=== PATIENT | female | born 1970 | race Caucasian/White ===

== ENCOUNTER → 2016-09-02 | Outpatient (CLI) | payer MEDICARE, MEDICAID ==
[~2016-09-02] MED LIST: BUPR300T28 PO; CLON1TAB4 PO; CYCL5TAB PO; DEXL60CA3 PO; DICY10CA88 PO; FERR-63 PO; GEMF600T3 PO; HYDR25TA PO; LISI40TA4 PO; MELO-58 PO; RANI150T7 PO; VITAMIN B COMPLEX PO; [UNRECOGNIZED DRUG - CODE] PO
[2016-09-02 12:17] LABS: BASOPHILS % 0.7 % (0.0-2.0); EOSINOPHILS % 1.8 % (0.0-5.0); HEMATOCRIT. 36.7 % (36.0-48.0); HEMOGLOBIN. 12.3 g/dL (12.0-16.0); LYMPHOCYTES % 44.2 % (20.0-50.0); MEAN CORPUSCULAR HEMOGLOBIN 28.6 pg (28.0-32.0); MEAN CORPUSCULAR HGB CONC 33.5 g/dL (31.0-37.0); MEAN CORPUSCULAR VOLUME 85.3 fL (81.0-99.0); MEAN PLATELET VOLUME 7.7 fl (7.4-10.4); MONOCYTES % 8.7 % (2.0-8.0); NEUTROPHILS % 44.6 % (40.0-76.0); PLATELET 317 x1000/uL (130-400); RED BLOOD CELL COUNT 4.31 mill/uL (4.2-5.4); RED CELL DISTRIBUTION WIDTH 15.4 % (11.6-14.6); WHITE BLOOD COUNT 5.3 x1000/uL (4.5-11.0)
[2016-09-02 12:52] LABS: CLARITY URINE CLEAR (CLEAR); COLOR URINE YELLOW (YELLOW); GLUCOSE URINE NEGATIVE (NEGATIVE); KETONES URINE NEGATIVE (NEGATIVE); LEUKOCYTE ESTERASE URINE NEGATIVE (NEGATIVE); NITRITE URINE NEGATIVE (NEGATIVE); OCCULT BLOOD URINE NEGATIVE (NEGATIVE); PROTEIN URINE NEGATIVE (NEGATIVE); SPECIFIC GRAVITY URINE 1.008 (1.005-1.030); UROBILINOGEN URINE 0.2 E.U./dL (0.2-1.0)
[2016-09-02 12:54] LABS: HCG SCREEN NEGATIVE
[2016-09-02 12:56] LABS: ALANINE AMINOTRANSFERASE 20 IU/L (13-61); ALBUMIN 3.5 g/dL (3.4-5.0); ANION GAP 10; CALCIUM 8.6 mg/dL (8.5-10.1); CARBON DIOXIDE 26 mEq/L (21-32); CHLORIDE 106 mEq/L (98-107); INDEX HEMOLYSI 1 (1-3); INDEX ICTERIC 1 (1-4); INDEX LIPEMIC 1 (1-3); UREA NITROGEN BLOOD 8 mg/dL (7-21); eGFR > 60 mL/min (>60)
== END | disposition home or self-care (01) ==
LOC: LAB 11:48
PROVIDERS: ATTEND Obstetrics & Gynecology
DX: N84.0 Polyp of corpus uteri (principal); N92.0 Excessive and frequent menstruation with regular cycle
CPT/HCPCS: 36415; 80053; 81003; 84703; 85025

== ENCOUNTER 2016-09-03 05:59 | Day surgery (SDC) | payer MEDICARE, MEDICAID ==
[~2016-09-03] VITALS: Ht 157.5 cm; Wt 79.8 kg
[2016-09-03] MEDS ORDERED: LACTATED RINGERS 1,000 ML IV SCH (06:40)
[2016-09-03] MEDS ORDERED: CEFAZOLIN SODIUM 1000MG/VIAL ONE (07:53)
[2016-09-03] MEDS ORDERED: DEXAMETHASONE 4MG/ML 1ML VIAL ONE (07:54)
[2016-09-03] MEDS ORDERED: ONDANSETRON HCL 4MG/2ML VIAL ONE (07:54)
[2016-09-03] MEDS ORDERED: LABETALOL HCL 20MG/4ML CARPUJECT IV PRN (08:00)
[2016-09-03] MEDS ORDERED: MEPERIDINE HCL/PF 25MG/ML CPJ IV PRN (08:00)
[2016-09-03] MEDS ORDERED: ONDANSETRON HCL 4MG/2ML VIAL IV PRN ×2 (08:00→08:45)
[2016-09-03] MEDS ORDERED: HYDROMORPHONE HCL/PF 2MG/ML CPJ IV PRN (08:00)
[2016-09-03] MEDS ORDERED: HYDROCODONE/ACETAMINOPHEN 5/325MG TABLET PO PRN (08:45)
[2016-09-03 09:42] VITALS: BP 130/76
== END 2016-09-03 11:30 | disposition home or self-care (01) ==
LOC: OR 05:59
PROVIDERS: ATTEND Obstetrics & Gynecology
DX: N84.0 Polyp of corpus uteri (principal); I10 Essential (primary) hypertension; J45.909 Unspecified asthma, uncomplicated; F41.8 Other specified anxiety disorders
CPT/HCPCS: 58558; 71010; 88305; 93005; J0690; J1100; J1170; J2405; J7120

== ENCOUNTER → 2016-11-01 | Outpatient (CLI) | payer MEDICARE, MEDICAID ==
[~2016-11-01] MED LIST changes: -BUPR300T28 PO; +BUPR300T54 PO; +CITA40TA11 PO; -[UNRECOGNIZED DRUG - CODE] PO
[2016-11-01 13:11] LABS: BG BASE EXCESS -1.9 mmol/L (-2.0-2.0); BG CARBOXYHEMOGLOBIN 0.2 % (0.5-1.5); BG DEOXYHEMOGLOBIN 2.9 % (0.0-5.0); BG FRACTION INSPIRED OXYGEN 21; BG HCO3 ACT 20.4 mmol/L (22.0-26.0); BG METHEMOGLOBIN 0.3 % (0.0-1.5); BG OXYGEN SATURATION 97.1 % (92.0-98.5); BG OXYHEMOGLOBIN 96.6 % (94.0-97.0); BG PCO2 27.9 mmHg (35.0-45.0); BG PH 7.482 (7.350-7.450); BG SAMPLE SITE RIGHT RADIAL; BG TOTAL HEMOGLOBIN 12.6 g/dL (12.0-18.0); BG VENT MODE ROOM AIR
== END | disposition home or self-care (01) ==
LOC: PF 12:45
PROVIDERS: ATTEND Internal Medicine Cardiovascular Disease
DX: R06.02 Shortness of breath (principal); Z98.1 Arthrodesis status
CPT/HCPCS: 36600; 71020; 82375; 82805